=== PATIENT | female | born 1980 | race Caucasian/White ===

== ENCOUNTER 2016-12-25 12:17 | Emergency (ER) | payer SELFPAY ==
[2016-12-25 12:23] VITALS: BP 125/74
--- NOTE | 2016-12-25 12:28 | ER Document Report ---
ED ENT - General Chief Complaint: Ear Pain Stated Complaint: LEFT EAR PAIN Time Seen by Provider: 12/25/16 12:28 Mode of Arrival: Ambulatory Notes: 36-year-old female presents to ED for complaint of left ear pain with decreased hearing since . Patient states she was concerned that she had a reyes in her ear because she has worked at home. TRAVEL OUTSIDE OF THE [place] IN LAST 30 DAYS: No - HPI Patient complains to provider of: Ear problem Onset: Other Onset/Duration: Gradual, Worse Quality of pain: Achy, Dull Severity: Moderate Pain Level: 3 Location of pain: Ears Associated symptoms: Ear pain Similar symptoms previously: Yes Recently seen / treated by doctor: No - Related Data Allergies/Adverse Reactions: No Known Allergies Allergy (Verified 12/25/16 12:21) Past Medical History - General Information source: Patient - Social History Smoking Status: Current Every Day Smoker Cigarette use (# per day): Yes - 1/2 ppd Chew tobacco use (# tins/day): No Smoking Education Provided: Yes - less than 2 min Frequency of alcohol use: None Drug Abuse: None Occupation: none Lives with: Parents Family History: Arthritis, CAD, COPD, CVA, Hyperlipidemia, Hypertension, Malignancy. denies: DM, Thyroid Disfunction Patient has suicidal ideation: No Patient has homicidal ideation: No - Past Medical History Cardiac Medical History: Reports: None Pulmonary Medical History: Reports: Hx Asthma EENT Medical History: Reports: None Neurological Medical History: Reports: None Endocrine Medical History: Reports: None Renal/ Medical History: Reports: None. Denies: Hx Peritoneal Dialysis Malignancy Medical History: Reports: None GI Medical History: Reports: None Musculoskeltal Medical History: Reports None Skin Medical History: Reports None Psychiatric Medical History: Reports: Hx Depression Traumatic Medical History: Reports: None Infectious Medical History: Reports: None Surgical Hx: Negative Past Surgical History: Reports: None - Immunizations Immunizations up to date: No Hx Diphtheria, Pertussis, Tetanus Vaccination: Yes Review of Systems - Review of Systems Constitutional: No symptoms reported EENT: Ear pain Cardiovascular: No symptoms reported Respiratory: No symptoms reported Gastrointestinal: No symptoms reported Genitourinary: No symptoms reported Female Genitourinary: No symptoms reported Musculoskeletal: No symptoms reported Skin: No symptoms reported Hematologic/Lymphatic: No symptoms reported Neurological/Psychological: No symptoms reported -: Yes All other systems reviewed and negative Physical Exam - Vital signs Vitals: Temp Pulse Resp BP Pulse Ox 98.4 F 75 18 125/74 96 12/25/16 12:21 12/25/16 12:21 12/25/16 12:21 12/25/16 12:21 12/25/16 12:21 Interpretation: Normal - General General appearance: Appears well, Alert - HEENT Head: Normocephalic, Atraumatic Eyes: Normal Pupils: PERRL Ears: Normal External canal: Cerumen impaction - left Tympanic membrane: Normal Sinus: Normal Nasal: Normal Mouth/Lips: Normal Mucous membranes: Normal Pharynx: Normal Neck: Normal - Respiratory Respiratory status: No respiratory distress Chest status: Nontender Breath sounds: Normal Chest palpation: Normal - Cardiovascular Rhythm: Regular Heart sounds: Normal auscultation Murmur: No - Abdominal Inspection: Normal Distension: No distension Bowel sounds: Normal Tenderness: Nontender Organomegaly: No organomegaly - Back Back: Normal, Nontender - Extremities General upper extremity: Normal inspection, Nontender, Normal color, Normal ROM , Normal temperature General lower extremity: Normal inspection, Nontender, Normal color, Normal ROM , Normal temperature, Normal weight bearing. No: Donta's sign - Neurological Neuro grossly intact: Yes Cognition: Normal Orientation: AAOx4 [place] Coma Scale Eye Opening: Spontaneous Renu Coma Scale Verbal: Oriented [place] Coma Scale Motor: Obeys Commands [place] Coma Scale Total: 15 Speech: Normal Motor strength normal: LUE, RUE, LLE, RLE Sensory: Normal - Psychological Associated symptoms: Normal affect, Normal mood - Skin Skin Temperature: Warm Skin Moisture: Dry Skin Color: Normal Course - Re-evaluation Re-evalutation: 12/25/16 12:51 Patient will have Colace instilled in the left ear wait 15 minutes then flushed with warm water and peroxide. Ear will then be reexamined. 12/25/16 13:20 Pain relieved hearing much improved after removing the impaction from her left ear. Instructions given for cleaning ears in the future without Q-tips. Patient will be discharged home to follow-up with her primary doctor. - Vital Signs Vital signs: Temp Pulse Resp BP Pulse Ox 98.4 F 75 18 125/74 96 12/25/16 12:21 12/25/16 12:21 12/25/16 12:21 12/25/16 12:21 12/25/16 12:21 Discharge - Discharge Clinical Impression: Impacted cerumen of left ear Condition: Stable Disposition: HOME, SELF-CARE Instructions: Family Physicians / Practices Additional Instructions: Cerumen Impaction The physician found a severe buildup of earwax in your ear canal, called a cerumen impaction. A large plug of wax can cause earache, decreased hearing, or itching. It can even lead to infection of the outer ear. An impaction of earwax can be removed by the physician using special instruments, or can be irrigated out using a stream of water (often a little of both is required). Some less severe impactions are removed using ear drops that dissolve wax. In the future, don't get soap in your ear canal. Soap doesn't remove wax - - it simply hardens it in place. Don't use cotton swabs. These just push the wax into large clumps, where it doesn't flow out normally. Dust and smoke also contribute to wax buildup. Earwax softening drops are available without prescription, and can be used periodically. Contact the doctor if you develop decreased hearing, earache, drainage from the ear, or severe headache. FOLLOW-UP CARE: If you have been referred to a physician for follow-up care, call the physician s office for an appointment as you were instructed or within the next two days. If you experience worsening or a significant change in your symptoms, notify the physician immediately or return to the Emergency Department at any time for re-evaluation. Forms: Smoking Cessation Education
[2016-12-25] MEDS ORDERED: DOCUSATE SODIUM 100 MG CAPSULE LFT_EAR ONE (12:42)
== END 2016-12-25 13:20 | disposition home or self-care (01) ==
LOC: ER 12:17
DX: H61.22 Impacted cerumen, left ear (principal); F17.210 Nicotine dependence, cigarettes, uncomplicated
CPT/HCPCS: 99282

== ENCOUNTER → 2018-01-02 | Outpatient (CLI) | payer OTHER ==
[2018-01-02 16:43] LABS: ABSOLUTE BASOPHILS # (AUTO) 0.1 10^3/uL (0.0-0.2); ABSOLUTE EOSINOPHILS # (AUTO) 0.8 10^3/uL (0.0-0.6); ABSOLUTE LYMPHOCYTES (AUTO) 2.7 10^3/uL (0.5-4.7); ABSOLUTE MONOCYTES (AUTO) 0.5 10^3/uL (0.1-1.4); ABSOLUTE NEUT (AUTO) 5.8 10^3/uL (1.7-8.2); BASOPHILS % (AUTO) 0.9 % (0-2); EOSINOPHILS % (AUTO) 8.3 % (0-6); HEMATOCRIT 44.8 % (36.0-47.0); HEMOGLOBIN 15.3 g/dL (12.0-15.5); LYMPHOCYTES % (AUTO) 26.9 % (13-45); MEAN CORPUSCULAR HEMOGLOBIN 31.5 pg (27.0-33.4); MEAN CORPUSCULAR VOLUME 92 fl (80-97); MONOCYTES % (AUTO) 5.5 % (3-13); PLATELET COUNT 322 10^3/uL (150-450); RED BLOOD COUNT 4.85 10^6/uL (3.72-5.28); RED CELL DISTRIBUTION WIDTH 13.5 % (11.5-14.0); SEGMENTED NEUTROPHILS % (AUTO) 58.4 % (42-78); TOTAL CELLS COUNTED % (AUTO) 100 %
[2018-01-02 17:01] LABS: ALANINE AMINOTRANSFERASE 24 U/L (9-52); ALBUMIN 4.2 g/dL (3.5-5.0); ALKALINE PHOSPHATASE 91 U/L (38-126); ANION GAP 9 (5-19); ASPARTATE AMINO TRANSFERASE 27 U/L (14-36); BILIRUBIN,DIRECT 0.3 mg/dL (0.0-0.4); BILIRUBIN,TOTAL 0.6 mg/dL (0.2-1.3); BLOOD UREA NITROGEN 8 mg/dL (7-20); CALCIUM 9.6 mg/dL (8.4-10.2); CARBON DIOXIDE 28 mmol/L (22-30); CHLORIDE 106 mmol/L (98-107); CHOLESTEROL 245.54 mg/dL (0-200); GLUCOSE 83 mg/dL (75-110); POTASSIUM 4.6 mmol/L (3.6-5.0); SODIUM 142.5 mmol/L (137-145); TOTAL PROTEIN 7.6 g/dL (6.3-8.2); TRIGLYCERIDES 250 mg/dL (<150)
[2018-01-02 17:12] LABS: DIRECT LDL 158 mg/dL (<100)
== END ==
LOC: CCC 15:20
DX: J45.998 Other asthma (principal)
CPT/HCPCS: 36415; 80053; 80061; 83036; 84443; 85025

== ENCOUNTER → 2018-01-23 | Outpatient (CLI) | payer OTHER ==
--- NOTE | 2018-01-23 15:44 | RADIOLOGY REPORT (SQ) ---
EXAM DESCRIPTION: CT ABD/PELVIS COMBO COMPLETED DATE/TIME: 01/23/2018 2:17 pm REASON FOR STUDY: ABD PAIN (R10.9) R10.9 UNSPECIFIED ABDOMINAL PAIN COMPARISON: None. TECHNIQUE: CT scan of the abdomen and pelvis performed with and without intravenous contrast, and wi th oral contrast. Contrasted imaging performed helical scanning technique and dynamic intravenous con trast injection. Images reviewed with lung, soft tissue, and bone windows. Reconstructed coronal and sagittal MPR images reviewed. Delayed images for evaluation of the urinary system also acquired. All images stored on PACS. All CT scanners at this facility use dose modulation, iterative reconstruction, and/or weight based d osing when appropriate to reduce radiation dose to as low as reasonably achievable (ALARA). [facility]: Dose Right [facility]: CareDose [facility]: Dose Right [facility]: Teradose 4D [facility]: Proxima Cancion CONTRAST TYPE AND DOSE: contrast/concentration: Isovue 370.00 mg/ml; Total Contrast Delivered: 100.0 ml; Total Saline Delivered: 72.0 ml RENAL FUNCTION: BUN 15 creatinine 0.69. RADIATION DOSE: CT Rad equipment meets quality standard of care and radiation dose reduction techniq ues were employed. CTDIvol: 15.3 - 17.4 mGy. DLP: 2525 mGy-cm. . LIMITATIONS: None. FINDINGS: NON-CONTRASTED IMAGING: No significant renal or bladder calcifications. No other significa nt organ calcifications. POST-CONTRASTED IMAGING: LOWER CHEST: No significant findings. No nodules or infiltrates. LIVER: Normal size. No masses. No dilated ducts. SPLEEN: Normal size. No focal lesions. PANCREAS: No masses. No significant calcifications. No adjacent inflammation or peripancreatic fluid collections. Pancreatic duct not dilated. GALLBLADDER: No identified stones by CT criteria. No inflammatory changes to suggest cholecystitis. ADRENAL GLANDS: No significant masses or asymmetry. RIGHT KIDNEY AND URETER: No solid masses. No significant calcifications. No hydronephrosis or hyd roureter. LEFT KIDNEY AND URETER: No solid masses. No significant calcifications. No hydronephrosis or hydr oureter. AORTA AND VESSELS: No aneurysm. No dissection. Renal arteries, SMA, celiac without stenosis. RETROPERITONEUM: No retroperitoneal adenopathy, hemorrhage or masses. BOWEL AND PERITONEAL CAVITY: No masses or inflammatory changes. No free fluid or peritoneal masses. APPENDIX: Normal. PELVIS: No mass. No free fluid. Normal bladder. ABDOMINAL WALL: No masses. No hernias. BONES: No significant or acute findings. OTHER: No other significant finding. IMPRESSION: NO SIGNIFICANT OR ACUTE ABNORMALITY IN THE ABDOMEN OR PELVIS. TECHNICAL DOCUMENTATION: JOB ID: [id number] Quality ID # [id number]: Final reports with documentation of one or more dose reduction techniques (e.g., Au tomated exposure control, adjustment of the mA and/or kV according to patient size, use of iterative reconstruction technique) 2010 [employer]- All Rights Reserved Reading location - IP/workstation name: [facility]
== END ==
LOC: RAD 13:28
DX: R10.9 Unspecified abdominal pain (principal)
CPT/HCPCS: 74178

== ENCOUNTER 2018-06-25 09:13 | Emergency (ER) | payer OTHER ==
[2018-06-25] MEDS ORDERED: ERYTHROMYCIN 0.5% OPH OINTMENT 3.5 GM (ER DISP) OS PRN (11:49)
[2018-06-25] MEDS ORDERED: KETOROLAC TROMETHAMINE 0.45% 4 DROP/0.4 ML DROPERETTE OS PRN (11:50)
--- NOTE | 2018-06-25 11:54 | ER Document Report ---
ED Eye Complaint - General Mode of Arrival: Ambulatory Information source: Patient TRAVEL OUTSIDE OF THE [place] IN LAST 30 DAYS: No - HPI Onset: Other - Cough and cold symptoms for several days with watery discharge to bilateral eyes and pressure greater in the left Eye location: Bilateral Injury: No Quality of pain: Burning - Itching, Pressure Severity: Severe Pain Level: 5 Associated symptoms: Burning, Itching, Pain, Redness, Matting - Mild only in the morning - General Chief Complaint: Eye Pain Stated Complaint: EYE ISSUE Time Seen by Provider: 06/25/18 09:56 Notes: 38-year-old female presented to ED for complaint of watering to both eyes left worse than right. States she has had cough cold congestion for several days and this morning she has had some discharge and pressure to both eyes left greater than right with her eyes. She states she has had watery discharge but no purulent discharge and has had some matting of eyelashes there was very mild in the morning but no other time of the day. Bilateral conjunctivae are injected left slightly worse than right. She states she was just concerned that she had conjunctivitis because of the pressure, burning, and itching. (OTILIA GALAVIZ) - Related Data Allergies/Adverse Reactions: No Known Allergies Allergy (Verified 06/25/18 09:14) Past Medical History - General Information source: Patient - Social History Smoking Status: Current Every Day Smoker Cigarette use (# per day): Yes - Half pack per day Chew tobacco use (# tins/day): No Smoking Education Provided: Yes - 4 minutes Frequency of alcohol use: None Drug Abuse: None Lives with: Parents Family History: Arthritis, CAD, COPD, CVA, Hyperlipidemia, Hypertension, Malignancy Patient has suicidal ideation: No Patient has homicidal ideation: No - Past Medical History Cardiac Medical History: Reports: None Pulmonary Medical History: Reports: Hx Asthma EENT Medical History: Reports: None Neurological Medical History: Reports: None Endocrine Medical History: Reports: None Renal/ Medical History: Reports: None Malignancy Medical History: Reports: None GI Medical History: Reports: None Musculoskeletal Medical History: Reports None Skin Medical History: Reports None Psychiatric Medical History: Reports: Hx Depression Traumatic Medical History: Reports: None Infectious Medical History: Reports: None Surgical Hx: Negative Past Surgical History: Reports: None - Immunizations Immunizations up to date: No Hx Diphtheria, Pertussis, Tetanus Vaccination: Yes Review of Systems - Review of Systems EENT: Eye pain, Eye discharge - watery bilateral, matting in the am only, Blurred vision, Tearing, Nose congestion, Nose discharge Cardiovascular: No symptoms reported Respiratory: No symptoms reported Gastrointestinal: No symptoms reported Genitourinary: No symptoms reported Female Genitourinary: No symptoms reported Musculoskeletal: No symptoms reported Skin: No symptoms reported Hematologic/Lymphatic: No symptoms reported Neurological/Psychological: No symptoms reported -: Yes All other systems reviewed and negative Physical Exam - Vital signs Interpretation: Normal - General General appearance: Appears well, Alert - HEENT Head: Normocephalic, Atraumatic Eyes: Normal Conjunctiva: Injected, Other - Watery discharge. No: Purulent discharge Extraocular movements intact: Yes Eyelashes: Matted - No matting noted at this time. Patient states she has matting to the eyelashes in the morning only Pupils: PERRL Visual acuity- Right eye: 20/70 Visual acuity- Left eye: 20/400 Visual acuity- Both eyes: 20/70 Corrective lenses worn: Yes - Patient states she is supposed to wear glasses but does not have them Ears: Normal External canal: Normal Tympanic membrane: Normal Nasal: Purulent discharge, Swelling Mouth/Lips: Normal Mucous membranes: Normal Pharynx: Post nasal drainage - Respiratory Respiratory status: No respiratory distress Chest status: Nontender Breath sounds: Normal Chest palpation: Normal - Cardiovascular Rhythm: Regular Heart sounds: Normal auscultation Murmur: No - Abdominal Inspection: Normal Distension: No distension Bowel sounds: Normal Tenderness: Nontender Organomegaly: No organomegaly - Back Back: Normal, Nontender - Extremities General upper extremity: Normal inspection, Nontender, Normal color, Normal ROM, Normal temperature General lower extremity: Normal inspection, Nontender, Normal color, Normal ROM, Normal temperature, Normal weight bearing. No: Donta's sign - Neurological Neuro grossly intact: Yes Cognition: Normal Orientation: AAOx4 [place] Coma Scale Eye Opening: Spontaneous [place] Coma Scale Verbal: Oriented [place] Coma Scale Motor: Obeys Commands Renu Coma Scale Total: 15 Speech: Normal Motor strength normal: LUE, RUE, LLE, RLE Sensory: Normal - Psychological Associated symptoms: Normal affect, Normal mood - Skin Skin Temperature: Warm Skin Moisture: Dry Skin Color: Normal - Vital signs Vitals: Temp Pulse Resp BP Pulse Ox 98.6 F 78 16 113/85 97 06/25/18 09:17 06/25/18 09:17 06/25/18 09:17 06/25/18 09:17 06/25/18 09:17 Course - Re-evaluation Re-evalutation: 06/25/18 20:56 I did personally see and examine this patient in conjunction with the nurse practitioner Otilia Galaviz. Visual acuity was reported to me as being equal in both eyes and unchanged from baseline without her glasses. Review of the chart does now reveal that her visual acuity in her left eye was 20/400 this information was not charted and not reported to me at the time of exam. Patient states that she has been having increasing watery discharge from her eyes left greater than right over the past 2-3 days and a feeling of pressure in her left eye like her eye is going to pop out of her head. Denies any trauma to the eye, denies any foreign body sensation. States her eyes have been crusted shut when she wakes up. Physical examination reveals injected bilateral conjunctiva, left significantly worse than right, fluorescein dye does not show any uptake, slit-lamp examination does not show any fluorescein uptake or any cell and flare in the anterior chamber. No foreign bodies are noted. Intraocular pressure on the left eye was 17. No pain with extraocular movements, no exophthalmos. Patient is instructed to use erythromycin ointment as dispensed by Ms. Galaviz, follow-up with ophthalmology tomorrow, return for decreasing vision increasing pain or any new or concerning symptoms. (MAURICIO PACHECO) 06/25/18 23:20 Patient was seen earlier today. Her assessment was consistent with an upper respiratory infection with watery discharge to both eyes left greater than right. She states she did have pressure in the left eye and Dr. Pacheco checked with Jb-Pen and her pressure was 17. The visual acuity was not charted when I examined the patient. I was informed by the nurses that she had some trouble with the visual acuity due to her not having glasses with her. Patient was instructed on use of erythromycin ointment in the emergency room and that she needed to follow-up with ophthalmology tomorrow or return to the ED for any increase in pain or problems. Patient was able to verbalize understanding and agreement with treatment plan. (OTILIA GALAVIZ) - Vital Signs Vital signs: Temp Pulse Resp BP Pulse Ox 98.2 F 68 18 110/60 100 06/25/18 12:05 06/25/18 12:05 06/25/18 12:05 06/25/18 12:05 06/25/18 12:05 Discharge - Discharge Clinical Impression: EKC (epidemic keratoconjunctivitis) Condition: Stable Disposition: HOME, SELF-CARE Additional Instructions: CONJUNCTIVITIS: You have an infection in your eye, commonly known as "pink eye." Conjunctivitis causes redness, mild discomfort, itching, and mattering on the eyelids. It is very contagious, so you must be careful to wash your hands after touching your face so you don't pass the infection on to others. Conjunctivitis is caused by both viruses and bacteria. It usually responds quickly to treatment with antibiotic drops. These should be placed in the eye as prescribed (usually every three to four hours while you're awake). If you wear contact lenses, don't put them in your eyes until the infection is cleared and you are no longer using the drops (unless your doctor advises you otherwise). Should you develop increasing eye pain, severe swelling, decreased vision, or fail to improve as expected, please return for re-examination. EYEDROP USE: Eyedrops are most easily applied by pulling down on the cheek just below the lower eyelid. The lower lid will pop out to form a pouch into which you can drop the medicine. A small brief sting is not unusual, especially if the eye is reddened and irritated already. Use the drops exactly as recommended. You should see the doctor at once if there is a decrease in vision, swelling of the eye, or an increase in discomfort. These place 1 drop of the ketorolac in your left eye every 6 hours as needed for pain ANTIBIOTIC THERAPY: You have been given an antibiotic medication. It's important that you take all the medication, unless instructed otherwise by your physician. Failure to complete the entire course can result in relapse of your condition. Common side effects of antibiotics include nausea, intestinal cramping, or diarrhea. Women may develop vaginal yeast infections, and babies can get yeast (thrush) in the mouth following the use of antibiotics. Contact your physician if you develop significant side effects from this medication. Allergy to this antibiotic can result in hives, wheezing, faintness, or itching. If symptoms of allergy occur, stop the medication and call the doctor. Erythromycin You have been prescribed an antibiotic of the erythromycin class. These antibiotics are used for many infections, especially in penicillin-allergic patients. They're particularly useful for infections of the respiratory system. The medication will be most effective if taken before or at least two hours after meals. However, many persons will have nausea or stomach cramping with erythromycin. If this occurs, try taking the medicine with food. If the side effects are still intolerable, contact your doctor. You should not take erythromycin with non-sedating antihistamines such as Seldane or Hismanal. Call the doctor at once if you develop rash, itching, shortness of breath, or lightheadedness. FOLLOW-UP CARE: If you have been referred to a physician for follow-up care, call the physicians office for an appointment as you were instructed or within the next two days. If you experience worsening or a significant change in your symptoms, notify the physician immediately or return to the Emergency Department at any time for re-evaluation. Please call 1 of the 2 eye doctors today to schedule a follow-up appointment in the next couple days. Please be sure to keep this appointment to recheck URI. Please use the erythromycin ointment Referrals: [facility] [Primary Care Provider] - Follow up as needed CARLOS KINGSLEY MD [ACTIVE STAFF] - Follow up as needed DYLON DAMON MD [ACTIVE STAFF] - Follow up as needed
[2018-06-25 12:16] VITALS: BP 110/60
== END 2018-06-25 12:05 | disposition home or self-care (01) ==
LOC: ER 09:13
DX: B30.0 Keratoconjunctivitis due to adenovirus (principal); R05 Cough; R09.81 Nasal congestion; F17.210 Nicotine dependence, cigarettes, uncomplicated; J45.909 Unspecified asthma, uncomplicated
CPT/HCPCS: 99282; 99406

== ENCOUNTER 2018-07-01 11:12 | Emergency (ER) | payer OTHER ==
--- NOTE | 2018-07-01 12:40 | ER Document Report ---
ED Medical Screen (RME) - General Chief Complaint: Eye Problem Stated Complaint: EYE PAIN Time Seen by Provider: 07/01/18 12:39 Notes: Patient is here with complaint of left eye pain and swelling and drainage. Patient says she was here 6 days ago and diagnosed with pinkeye. She was given an antibiotic and a tube and her eye resolved and yesterday and the day before the left eye was fine. She went to her boyfriend's last evening and spent the night there and when she woke up her eye was now swollen and red again. She says he works in construction and has a lot of materials such as sheet rock, etc. in his house. He does not have any animals such as cats. Has not had any fever. TRAVEL OUTSIDE OF THE [place] IN LAST 30 DAYS: No - Related Data Allergies/Adverse Reactions: No Known Allergies Allergy (Verified 06/25/18 09:14) Past Medical History - Social History Frequency of alcohol use: None Drug Abuse: None Pulmonary Medical History: Reports: Hx Asthma Renal/ Medical History: Denies: Hx Peritoneal Dialysis Psychiatric Medical History: Reports: Hx Depression - Immunizations Immunizations up to date: No Hx Diphtheria, Pertussis, Tetanus Vaccination: Yes Physical Exam - Vital signs Vitals: Temp Pulse Resp BP Pulse Ox 98.0 F 79 16 125/83 97 07/01/18 11:35 07/01/18 11:35 07/01/18 11:35 07/01/18 11:35 07/01/18 11:35 Course - Vital Signs Vital signs: Temp Pulse Resp BP Pulse Ox 98.0 F 79 16 125/83 97 07/01/18 11:35 07/01/18 11:35 07/01/18 11:35 07/01/18 11:35 07/01/18 11:35 Doctor's Discharge - Discharge Referrals: [facility] [Primary Care Provider] - Follow up as needed
[2018-07-01] MEDS ORDERED: TETRACAINE HCL 0.5% OPH SOLN 0.6 ML DROPERETTE OU ONE (14:03)
--- NOTE | 2018-07-01 14:05 | ER Document Report ---
ED Eye Complaint - General Chief Complaint: Eye Problem Stated Complaint: EYE PAIN Time Seen by Provider: 07/01/18 12:39 Mode of Arrival: Ambulatory Information source: Patient Notes: 38-year-old female presents emergency department with complaints of left eye pain, periorbital swelling, yellow drainage. Patient was seen here 6 days ago and diagnosed with conjunctivitis. She was started on erythromycin ointment. Patient states that initially both eyes were affected. The left was worse than the right. Patient states that the conjunctivitis completely resolved. She states that this morning she woke up with left eye pain and when she looked in the mirror it was injected again. Patient states that she did sleep at her boyfriend's last night. She states that he works in construction and there is a lot of dust, debris in the house. She denies any eye trauma or injury. No history of fever. She denies pain with ocular movement, floaters, blurred vision, vision loss. She says she's been keeping her Left eye closed secondary to the pain. TRAVEL OUTSIDE OF THE [place] IN LAST 30 DAYS: No - HPI Onset: This morning Eye location: Left Injury: No Occurred at: Home Quality of pain: Pressure Severity: Mild Safety glasses worn: No Contact lenses worn: No Associated symptoms: Burning, Redness, Matting, Eyelid swelling - Related Data Allergies/Adverse Reactions: No Known Allergies Allergy (Verified 06/25/18 09:14) Past Medical History - General Information source: Patient - Social History Smoking Status: Current Every Day Smoker Frequency of alcohol use: None Drug Abuse: None Family History: Arthritis, CAD, COPD, CVA, Hyperlipidemia, Hypertension, Malignancy Patient has suicidal ideation: No Patient has homicidal ideation: No Pulmonary Medical History: Reports: Hx Asthma Renal/ Medical History: Denies: Hx Peritoneal Dialysis Psychiatric Medical History: Reports: Hx Depression - Immunizations Immunizations up to date: No Hx Diphtheria, Pertussis, Tetanus Vaccination: Yes Review of Systems - Review of Systems Constitutional: No symptoms reported EENT: Eye pain, Eye discharge Cardiovascular: No symptoms reported Gastrointestinal: No symptoms reported Genitourinary: No symptoms reported Female Genitourinary: No symptoms reported Musculoskeletal: No symptoms reported Skin: Change in color Hematologic/Lymphatic: No symptoms reported Neurological/Psychological: No symptoms reported -: Yes All other systems reviewed and negative Physical Exam - Vital signs Vitals: Temp Pulse Resp BP Pulse Ox 98.0 F 79 16 125/83 97 07/01/18 11:35 07/01/18 11:35 07/01/18 11:35 07/01/18 11:35 07/01/18 11:35 - Notes Notes: PHYSICAL EXAMINATION: GENERAL: Well-appearing, well-nourished and in no acute distress. HEAD: Atraumatic, normocephalic. EYES: Pupils equal round and reactive to light, extraocular movements intact, conjunctiva injected to the L eye. Periorbital erythema appreciated. Upper and lower lid edema. No pain per patient with extraocular movements. ENT: Nares patent, oropharynx clear without exudates. Moist mucous membranes. NECK: Normal range of motion, supple without lymphadenopathy LUNGS: Breath sounds clear to auscultation bilaterally and equal. No wheezes rales or rhonchi. HEART: Regular rate and rhythm without murmurs Female : deferred Musculoskeletal: Normal range of motion, no pitting or edema. No cyanosis. NEUROLOGICAL: Cranial nerves grossly intact. Normal speech, normal gait. Normal sensory, motor exams PSYCH: Normal mood, normal affect. SKIN: Warm, Dry, normal turgor, no rashes or lesions noted. Course - Re-evaluation Re-evalutation: 07/01/18 17:51 Slit-lamp exam done. No cells or flare. No corneal abrasion. Jb-Pen used to check the interocular pressure. The readings were 15, 17, 18. During the slit lamp exam, patient began complaining of pain with movement of the eye. With the surrounding erythema and lid edema a CT of the orbit was obtained to evaluate for orbital cellulitis. This was reported as no acute proc ess. I discussed the results with the patient. I told her that with the lid swelling and surrounding erythema that I will start her on bactrim and keflex PO to cover for periorbital cellulitis. Patient says that she's out of the erythromycin ointment and that it wasn't working. I started her on ciprofloxacin drops. I instructed the patient to take the medication as directed, to follow up with her primary care physician this week, and to return for worsening symptoms. - Vital Signs Vital signs: Temp Pulse Resp BP Pulse Ox 98.0 F 61 17 125/91 H 100 07/01/18 17:31 07/01/18 17:31 07/01/18 17:31 07/01/18 17:31 07/01/18 17:31 Discharge - Discharge Clinical Impression: Periorbital cellulitis of left eye Conjunctivitis Qualifiers: Conjunctivitis type: unspecified Laterality: left Qualified Code(s): H10.9 - Unspecified conjunctivitis Condition: Good Disposition: HOME, SELF-CARE Instructions: Cellulitis ([facility]), Conjunctivitis ([facility]) Prescriptions: Cephalexin Monohydrate [Keflex 500 mg Capsule] 500 mg PO Q6H 10 Days #40 capsule Ciprofloxacin HCl [Ciloxan] 2 drp OP ASDIR #1 bottle Sulfamethoxazole/Trimethoprim [Bactrim Ds Tablet] 1 each PO BID 10 Days #20 tablet Ref[facility]: [facility] [NO LOCAL MD] - Follow up as needed MARLEN WARD MD [ACTIVE STAFF] - Follow up as needed
--- NOTE | 2018-07-01 16:41 | RADIOLOGY REPORT (SQ) ---
EXAM DESCRIPTION: CT ORBIT/SELLA WITHOUT COMPLETED DATE/TIME: 07/01/2018 4:25 pm REASON FOR STUDY: orbital cellulitis COMPARISON: None. TECHNIQUE: Noncontrasted images through the orbits windowed for bone and soft tissue. Additional co lisa and sagittal reconstructed images reviewed. All images stored on PACS. All CT scanners at this facility use dose modulation, iterative reconstruction, and/or weight based d osing when appropriate to reduce radiation dose to as low as reasonably achievable (ALARA). [facility]: Dose Right [facility]: CareDose [facility]: Dose Right [facility]: Teradose 4D [facility]: [employer] RADIATION DOSE: CT Rad equipment meets quality standard of care and radiation dose reduction techniq ues were employed. CTDIvol: 30.4 mGy. DLP: 270 mGy-cm. mGy. LIMITATIONS: None. FINDINGS: FACIAL BONES: No fracture or bone lesion. ORBITS: Intact. No fracture. Symmetric intact globes and retroorbital soft tissues. PARANASAL SINUSES: Mucous membrane thickening in the right maxillary sinus. No fluid. Nasal septum d eviated to the left. No nasal polyps. Maxillary sinus outlets are patent. SOFT TISSUES: No mass or edema. INFERIOR BRAIN: Limited view. No acute findings. OTHER: No other significant finding. IMPRESSION: NO SIGNIFICANT FINDINGS IN THE ORBITS OR ADJACENT SOFT TISSUES. MUCOUS MEMBRANE THICKEN ING IN THE RIGHT MAXILLARY SINUS. TECHNICAL DOCUMENTATION: JOB ID: [id number] Quality ID # [id number]: Final reports with documentation of one or more dose reduction techniques (e.g., Au tomated exposure control, adjustment of the mA and/or kV according to patient size, use of iterative reconstruction technique) 2010 [employer]- All Rights Reserved Reading location - IP/workstation name: [email or web address]
[2018-07-01] MEDS ORDERED: CIPROFLOXACIN HCL 0.3% OPH SOLN 2.5 ML OS ONE (17:20)
[2018-07-01 17:32] VITALS: BP 125/91
== END 2018-07-01 17:32 | disposition home or self-care (01) ==
LOC: ER 11:12
DX: L03.213 Periorbital cellulitis (principal); H10.9 Unspecified conjunctivitis; F17.200 Nicotine dependence, unspecified, uncomplicated; J45.909 Unspecified asthma, uncomplicated
CPT/HCPCS: 70480; 99283